=== PATIENT | male | born 1965 | race Caucasian/White ===

== ENCOUNTER → 2019-07-01 | Outpatient (CLI) | payer OTHER ==
--- NOTE | 2019-07-02 11:07 | CT ---
Procedure: CT LUNG SCREENING Exam Date: 07/01 2019 Ordering Provider: Julian Tavares Clinical Indication: PERSONAL HISTORY OF TOBACCO USE . Current cigarette smoker. 30 pack years. This patient meets eligibility criteria for low-dose CT lung cancer screening. Comparison: None. Technique: Using a multislice scanner, sequential helical axial imaging was obtained in the thorax, 2.5 mm thickness, 2.5 mm separation, from the level of the thoracic inlet through the lung bases without IV contrast. A low dose protocol was utilized for BMI less than 30: BMI: 22.8. CTDI: 1.76 mGy. 120. kVp. 45 mA. DLP 66.49 mGy-cm. 2D sagittal and coronal reconstructed images, 6.0 mm thickness, were obtained. This exam was performed according to our departmental dose optimization program which includes use of automated exposure control, adjustment of the mA and/or kV according to patient size and/or use of iterative reconstruction technique. Nodule measurements under 10 mm are given as mean value of 3 axes diameters. FINDINGS: Lungs and large airways: Bilateral parenchymal blebs more prevalent in the upper lung syed. Minimal perihilar peribronchial wall thickening bilaterally. Pleura and space: Bilateral sporadic focal pleural thickening predominantly upper lobes. Otherwise negative. Mediastinum and araceli: evaluation limited by low dose technique and lack of IV contrast. Middle lobe and superior mediastinal nodes largest with short axis diameter 8 mm. No dominant solid masses. Heart and great vessels: Unremarkable. Chest wall, lower neck, axillae: Evaluation also limited by same factors as described above. Bilateral axillary nodes larger on the left. Upper abdomen: Evaluation limited by low-dose technique. No free fluid or free air in the included peritoneal space. Included adrenal glands and spleen normal size and density. Gallbladder partially visualized. Osseous structures: Evaluation limited by low dose MIP technique. Minimal spondylosis in one of the lower level disc spaces. No lytic or blastic lesions. IMPRESSION: Emphysematous changes minimal and predominantly upper lung syed. Bilateral minimal perihilar peribronchial wall thickening. No abnormal nodules, no masses, no focal infiltrates. No mediastinal adenopathy.. [facility] Best Practice Recommendations: please see below for Lung RADS category and FOLLOW-UP.* *Lung RADS category Category 1 - No nodule or definitely benign nodules (probability of malignancy less than 1%). Follow-up: Continue annual screening with Low Dose Chest CT in 12 months. Electronically signed by: Leif Rose MD 07/02/2019 11:05 AM [facility]
== END ==
LOC: CT 09:00
PROVIDERS: ATTEND Family Medicine
DX: Z87.891 Personal history of nicotine dependence (principal); J43.9 Emphysema, unspecified

== ENCOUNTER → 2019-07-29 | Outpatient (CLI) | payer OTHER | LOC: YCFC.O 11:52 | PROVIDERS: ATTEND Family Medicine | DX: R73.01 Impaired fasting glucose (principal); R53.83 Other fatigue ==

== ENCOUNTER → 2019-12-10 | Outpatient (CLI) | payer OTHER | LOC: YCFC.O 11:43 | PROVIDERS: ATTEND Family Medicine | DX: E11.9 Type 2 diabetes mellitus without complications (principal) ==

== ENCOUNTER → 2020-01-22 | Outpatient (CLI) | payer OTHER ==
--- NOTE | 2020-01-22 16:40 | RAD ---
EXAM DESCRIPTION: Hip,Left 2 Views CLINICAL HISTORY: 54 years, Male, PAIN IN LEFT HIP COMPARISON: None TECHNIQUE: AP and frog leg lateral views of the left hip FINDINGS: 2 views of the right or left hip reveal no fracture or dislocation. No lytic bone lesion. There is no joint space abnormality observed. IMPRESSION: Negative for fracture or dislocation. Electronically signed by: Richard Davis MD 01/22/2020 4:39 PM CDT
--- NOTE | 2020-01-22 16:42 | RAD ---
EXAM DESCRIPTION: Knee,Left Complete CLINICAL HISTORY: 54 years, Male, PAIN IN LEFT KNEE COMPARISON: None TECHNIQUE: Four x-ray views of the left knee FINDINGS: No fracture or dislocation. Bones appear normally mineralized with normal trabecular pattern. Narrowed appearance of medial compartment on frontal view with spurring along the medial joint line and at the tibial spines. Lateral view shows normal position of the patella. Above the patella, calcified or osseous abnormality is seen which is indeterminate. Dystrophic calcification in the soft tissues might be considered versus a large calcified loose body in the suprapatellar bursal region of the knee joint. Correlate with other studies. Mild posterior patellar spurring. No suprapatellar knee joint effusion. Normal contour of quadriceps and patellar tendons. No abnormal patellar tilt or subluxation on patellar sunrise view. Spurring at the medial and lateral aspects of the femoral trochlea noted anteriorly. IMPRESSION: Degenerative changes as described, especially medial compartment. Ossific density in the suprapatellar region. See above. Electronically signed by: Richard Davis MD 01/22/2020 4:41 PM CDT
== END ==
LOC: RAD 14:42
PROVIDERS: ATTEND Family Medicine
DX: M17.12 Unilateral primary osteoarthritis, left knee (principal); M89.8X6 Other specified disorders of bone, lower leg; M25.552 Pain in left hip

== ENCOUNTER → 2020-02-16 | Outpatient (CLI) | payer OTHER ==
--- NOTE | 2020-02-16 15:31 | RAD ---
EXAM DESCRIPTION: Pelvis CLINICAL HISTORY: 54 years Male, HIP PAIN LEFT COMPARISON: None. FINDINGS: Single view of the bony pelvis demonstrates the bony pelvic ring intact with normal sacral neural arches and SI joints. The superior and inferior pubic rami are intact. No hip fracture or dislocation on this AP view of the pelvis noted. No soft tissue masses or destructive changes seen. IMPRESSION: Negative pelvis one view. Electronically signed by: Ellis Ruff MD 02/16/2020 3:29 PM CDT
== END ==
LOC: RAD 09:28
PROVIDERS: ATTEND Orthopaedic Surgery
DX: M25.552 Pain in left hip (principal)

== ENCOUNTER → 2020-07-21 | Outpatient (CLI) | payer OTHER ==
--- NOTE | 2020-07-21 10:11 | CT ---
Procedure: CT LUNG SCREENING Exam Date: July 21, 2020. Ordering Provider: Joe Yusuf Clinical Indication: CURRENT SMOKER . Current cigarette smoker. 30 pack year history. This patient meets eligibility criteria for low-dose CT lung cancer screening. Comparison: Low-dose CT lung cancer screening examination June 2019. ASSESSMENT: Lung rads 1. Technique: Using a multislice scanner, sequential helical axial imaging was obtained in the thorax, 2.5 mm thickness, 2.5 mm separation, from the level of the thoracic inlet through the lung bases without IV contrast. A low dose protocol was utilized for BMI less than 30: BMI: 22. CTDI: 1.76 mGy. 120. kVp. 45 mA. DLP 73 mGy-cm. 2D sagittal and coronal reconstructed images, 6.0 mm thickness, were obtained. This exam was performed according to our departmental dose optimization program which includes use of automated exposure control, adjustment of the mA and/or kV according to patient size and/or use of iterative reconstruction technique. Nodule measurements under 10 mm are given as mean value of 3 axes diameters. FINDINGS: Lungs and large airways: Minimal pleural-parenchymal scarring in the bilateral lower lobes. No abnormal nodules and no masses. No acute or interval infiltrate. Pleura and space: Bilateral apical pleural thickening. No acute process. Mediastinum and araceli: evaluation limited by low dose technique and lack of IV contrast. Lymph nodes are stable. No dominant soft tissue mass. Heart and great vessels: Normal contours. No atherosclerotic calcifications. Chest wall, lower neck, axillae: Evaluation also limited by same factors as described above. Typical appearance of the axillary and subclavicular nodes. No dominant soft tissue mass. Upper abdomen: Evaluation limited by low-dose technique. Normal size and density of the spleen and adrenal glands. Gallbladder partially visualized. No free fluid or free air. Osseous structures: Evaluation limited by low dose MIP technique. Minimal arthrosis. No blastic or lytic lesions. Minimal spondylosis at T11-T12. IMPRESSION: No abnormal lung nodules. Minimal scarring. No mass. No acute or interval development of infiltrate. [facility] Best Practice Recommendations: please see below for Lung RADS category and FOLLOW-UP.* *Lung RADS category Category 1 - No nodule or definitely benign nodules (probability of malignancy less than 1%). Follow-up: Continue annual screening with Low Dose Chest CT in 12 months. Electronically signed by: Leif Rose MD 07/21/2020 10:09 AM [facility] [[email or web address]]
== END ==
LOC: CT 07:58
PROVIDERS: ATTEND Family Medicine
DX: F17.200 Nicotine dependence, unspecified, uncomplicated (principal); J98.4 Other disorders of lung